=== PATIENT | female | born 1985 | race Caucasian/White ===

== ENCOUNTER 2019-07-04 16:04 | Emergency (ER) | payer BC, OTHER ==
--- NOTE | 2019-07-04 16:12 | PDOC ---
History of Present Illness - General Chief Complaint: Lightheaded Stated Complaint: DIZZY Time Seen by Provider: 07/04/19 16:12 - History of Present Illness Initial Comments: 07/04/19 17:32 Pt presents to the ED complaining of a one day history of positional vertigo. States that she had some ringing in her ears yesterday, and this morning developed vertigo, accompanied by nausea without vomiting. Denies fever, headache or other neurologic complaints. Denies prior history of vertigo, although she does report a long history of ear complaints. Past History - Past Medical History Allergies/Adverse Reactions: Allergies Allergy/AdvReac Type Severity Reaction Status Date / Time No Known Allergies Allergy Verified 07/04/19 16:16 Home Medications: Ambulatory Orders Norethindrone-E.estradiol-Iron [Microgestin Fe 1-20 Tablet] 1 each PO DAILY tablet 07/18/15 Meclizine HCl 25 mg PO QID PRN #30 tab.chew 07/04/19 Ondansetron HCl [Zofran] 4 mg PO QID PRN #30 tablet 07/04/19 Anemia: No Asthma: No Cancer: No Cardiac Disorders: No CVA: No COPD: No CHF: No Dementia: No Diabetes: No GI Disorders: Yes (EGD) Disorders: No HTN: No Hypercholesterolemia: No Liver Disease: No Seizures: No Thyroid Disease: No - Surgical History Abdominal Surgery: No Appendectomy: No Cardiac Surgery: No Cholecystectomy: No Lung Surgery: No Neurologic Surgery: No Orthopedic Surgery: No - Psycho Social/Smoking Cessation Hx Smoking History: Never smoked Hx Alcohol Use: Yes (SOCIAL) Drug/Substance Use Hx: No Review of Systems - Review of Systems Able to Perform ROS?: Yes Is the patient limited Burmese proficient: No Constitutional: No: Symptoms Reported, See HPI, Chills, Diaphoresis, Fever, Loss of Appetite, Malaise, Night Sweats, Weakness, Weight Stable, Unintentional Wgt. Loss, Unexplained wgt Loss, Other HEENTM: Yes: Tinnitus. No: Symptoms Reported, See HPI, Eye Pain, Blurred Vision , Tearing, Recent change in vision, Double Vision, Cataracts, Ear Pain, Ocular Prothesis, Ear Discharge, Nose Pain, Nose Congestion, Nose Bleeding, Hearing Loss, Throat Pain, Throat Swelling, Mouth Pain, Dental Problems, Difficulty Swallowing, Mouth Swelling, Other Respiratory: No: Symptoms reported, See HPI, Cough, Orthopnea, Shortness of Breath, SOB with Exertion, SOB at Rest, Stridor, Wheezing, Productive cough, Hemoptysis, Other Cardiac (ROS): No: Symptoms Reported, See HPI, Chest Pain, Edema, Irregular Heart Rate, Lightheadedness, Palpitations, Syncope, Chest Tightness, Other ABD/GI: No: Symptoms Reported, See HPI, Abdominal Distended, Abd. Pain w/ defecation, Blood Streaked Bowels, Constipated, Diarrhea, Difficulty Swallowing , Nausea, Poor Appetite, Poor Fluid Intake, Rectal Bleeding, Vomiting, Indigestion, Abdominal cramping, Tarry Stools, Other : No: Symptoms Reported, See HPI, Burning, Dysuria, Discharge, Frequency, Flank Pain, Hematuria, Incontinence, Pain, Urgency, Testicular Mass, Testicular Swelling, Lesions, Testicular Pain, Other Musculoskeletal: No: Symptoms Reported, See HPI, Back Pain, Gout, Joint Pain, Joint Swelling, Muscle Pain, Muscle Weakness, Neck Pain, Joint Stiffness, Other Integumentary: No: Symptoms Reported, See HPI, Bruising, Change in Color, Change in Hair/Nails, Dryness, Erythema, Flushing, Lesions, Lumps, Pallor, Pruritus, Rash, Sweating, Other Neurological: Yes: Dizziness. No: Symptoms reported, See HPI, Headache, Numbness, Paresthesia, Pre-Existing Deficit, Seizure, Tingling, Tremors, Weakness, Unsteady Gait, Ataxia, Other *Physical Exam - Physical Exam Comments: 07/04/19 17:43 gen: alert, NAD HEENT: TMS clear b/l. No nystagmus. CV: rrr no m/r/g Pulm: CTA b/l Abdomen: soft, non tender, non distended without guarding or rebound neuro: AAO x 3, CN grossly intact, ambulatory with normal gait Medical Decision Making - Medical Decision Making 07/04/19 17:44 pt presents to the ED complaining of vertigo that appears to be positional. Extremely low risk for central vertigo. Will treat with meclizine and reassess. 07/04/19 17:58 feels improved after valium and meclizine. Will discharge home with meclizine for vertigo and zofran for nausea. Discharge - Discharge Information Problems reviewed: Yes Clinical Impression/Diagnosis: Vertigo Condition: Good Disposition: HOME - Admission No - Additional Discharge Information Prescriptions: Meclizine HCl 25 mg PO QID PRN #30 tab.chew PRN Reason: Vertigo Ondansetron HCl [Zofran] 4 mg PO QID PRN #30 tablet PRN Reason: Nausea And/Or Vomiting - Follow up/Referral - Patient Discharge Instructions Patient Printed Discharge Instructions: DI for Vertigo Additional Instructions: you came to the ED for vertigo, which is most likely caused by an inner ear problem. We gave you meclizine, valium and zofran in the Ed. You should return to the ED for severe vertigo with nausea and vomiting that is not improved by meclizine and zofran, if you are unable to walk, if you are vomiting so much that you are unable to keep anything down. You should also return for severe headache, weakness on one side of the body or face, difficulty speaking or other new or worsening symptoms. Make sure you follow up with your ear nose and throat doctors. - Post Discharge Activity
[2019-07-04 16:22] VITALS: BP 124/83; PULSE 83; TEMP 98.1; BMI 25.0
[2019-07-04] MEDS ORDERED: MECLIZINE HCL 25 MG TABLET (FP) PO ONE (16:38)
[2019-07-04] MEDS ORDERED: MECLIZINE HCL 25 MG TABLET (FP) ONE (16:45)
[2019-07-04] MEDS ORDERED: diazePAM 2 MG TABLET PO ONE (17:20)
[2019-07-04] MEDS ORDERED: diazePAM 2 MG TABLET ONE (17:29)
[2019-07-04] MEDS ORDERED: ONDANSETRON 4 MG TABLET PO ONE ×2 (17:55→18:24)
== END 2019-07-04 18:16 | disposition home or self-care (01) ==
LOC: FER 16:04
DX: R42 Dizziness and giddiness (principal); K92.9 Disease of digestive system, unspecified
CPT/HCPCS: 81025; 99281-25